=== PATIENT | male | born 1935 | race Caucasian/White ===

== ENCOUNTER 2019-01-17 09:11 | Observation (INO) | payer MEDICARE ==
[2019-01-15 12:50] LABS: BASOPHILS % (AUTO) 0.4 % (0.0-5.0); EOSINOPHILS % (AUTO) 2.3 % (0.0-8.0); LYMPHOCYTES % (AUTO) 23.5 % (21.0-51.0); MEAN CORPUSCULAR HEMOGLOBIN 32.3 pg (27.0-33.0); MEAN CORPUSCULAR HGB CONC 33.7 g/dL (32.0-36.0); MEAN CORPUSCULAR VOLUME 95.9 fL (79-99); NEUTROPHILS % (AUTO) 66.8 % (40.0-77.0); PLATELET COUNT (AUTO) 148 K/uL (130-400); RED BLOOD CELL COUNT(AUTO) 4.28 MIL/uL (4.50-6.20); RED CELL DISTRIBUTION WIDTH 13.7 % (11.0-15.5); WHITE BLOOD COUNT (AUTO) 6.8 K/uL (4.8-10.8)
[2019-01-15 13:00] LABS: POTASSIUM 4.3 mmol/L (3.5-5.1)
[2019-01-15 13:01] LABS: INR 1.01 (0.85-1.15); PARTIAL THROMBOPLASTIN TIME 30.3 SEC (26.3-35.5); PROTHROMBIN TIME 10.6 SEC (9.6-11.6)
[2019-01-15 13:09] VITALS: BP 138/71
[~2019-01-17] VITALS: Ht 180.3 cm; Wt 97.0 kg
[2019-01-17] VITALS (9 sets, daily range): BP systolic 109–178; BP diastolic 70–85
[~2019-01-17 09:11] MED LIST: ASPI-1114 PO; CALC-866 PO; DOCU250C14 PO; FURO20TA4 PO; MULT-1203 PO; PRAV20TA4 PO
[2019-01-17] MEDS ORDERED: SODIUM CHLORIDE 0.9% 1000ML 1,000 ML IV ONE (10:34)
[2019-01-17] MEDS ORDERED: CEFAZOLIN SODIUM 1 GM VIAL ONE (14:08)
[2019-01-17] MEDS ORDERED: BUPIVACAINE/PF 0.25% 30ML VIAL IJ ONE (14:08)
[2019-01-17] MEDS ORDERED: LIDOCAINE HCL 1% MDV 50ML VIAL ONE (14:09)
[2019-01-17] MEDS ORDERED: MIDAZOLAM HCL 1 MG/ML 2ML VIAL ONE ×5 (14:09→16:34)
[2019-01-17] MEDS ORDERED: MEPERIDINE-PF 25 MG/ML SYG ONE ×6 (14:09→16:34)
[2019-01-17] MEDS ORDERED: IODIXANOL 320 MG/ML 100 ML VIAL ONE (14:10)
[2019-01-17] MEDS ORDERED: THROMBIN-JMI 5000 UNIT/VIAL TP ONE (14:57)
[2019-01-17] MEDS ORDERED: OCTYL 2-CYANOACRYLATE 1 EACH TP ONE (17:04)
[2019-01-17] MEDS ORDERED: METOPROLOL TARTRATE 25 MG TAB PO SCH (17:45)
[2019-01-17] MEDS ORDERED: ACETAMINOPHEN 325 MG TAB PO PRN ×2 (17:45)
[2019-01-17] MEDS ORDERED: ACETAMINOPHEN-CODEINE 300/30MG TAB PO PRN ×2 (17:45)
[2019-01-17] MEDS ORDERED: ONDANSETRON HCL 4 MG/2 ML VIAL IV PRN (17:45)
[2019-01-17] MEDS: METOPROLOL TARTRATE 25 MG TAB PO SCH (20:53)
[2019-01-17] MEDS ORDERED: DOCUSATE SODIUM 100 MG CAP PO SCH (21:00)
[2019-01-17] MEDS ORDERED: SIMVASTATIN 20 MG TABLET PO SCH (21:00)
[2019-01-17] MEDS ORDERED: ASPIRIN 81MG TAB.CHEW PO SCH (21:00)
[2019-01-17] MEDS: CEFAZOLIN SODIUM 1 GM VIAL IVP SCH (23:10)
[2019-01-18 03:00] VITALS: BP 123/64
[2019-01-18] MEDS: CEFAZOLIN SODIUM 1 GM VIAL IVP SCH (06:42)
[2019-01-18 07:00] VITALS: BP 129/69
[2019-01-18] MEDS: METOPROLOL TARTRATE 25 MG TAB PO SCH (08:38)
[2019-01-18] MEDS ORDERED: FUROSEMIDE 20 MG TABLET PO SCH (09:00)
[2019-01-18] MEDS ORDERED: MULTIVITAMIN TABLET PO SCH (09:00)
[2019-01-18] MEDS ORDERED: CHOLECALCIFEROL 5000 UNIT PO SCH (09:00)
[2019-01-18 11:00] VITALS: BP 143/93
--- NOTE | 2019-01-18 13:40 | NUR ---
GIVEN DISMISSAL INSTRUCTIONS AND SCRIPT TO PT. VERBALIZED UNDERSTANDING. REMOVED TELE PACK. REMOVED SALINE LOCK FROM LEFT HAND, IV SITE WITHOUT REDNESS NOTED. TAKEN TO PRIVATE CAR ALONG WITH PERSONAL BELONGINGS VIA WHEELCHAIR BY JAIME PARISH.
== END 2019-01-18 14:00 | disposition home or self-care (01) ==
LOC: DAH 09:11 → 2DH 09:12 → DAH 09:12
PROVIDERS: ADMIT Internal Medicine; ATTEND Internal Medicine
DX: I44.2 Atrioventricular block, complete (principal); I11.0 Hypertensive heart disease with heart failure; I50.22 Chronic systolic (congestive) heart failure; E78.5 Hyperlipidemia, unspecified; I42.0 Dilated cardiomyopathy; I87.2 Venous insufficiency (chronic) (peripheral); Z84.89 Family history of other specified conditions; Z79.01 Long term (current) use of anticoagulants
CPT/HCPCS: 33225; 33229; 36415; 71046; 80048; 85025; 85610; 85730; 93005 ×2; 96374; 96376; A4606; C1769 ×5; C1894; C1900; C2621; G0378 ×29; J0690 ×2; J2175 ×6; J2250 ×5; J3490 ×3; J7030; Q9967; 99156; 99157

== ENCOUNTER → 2020-01-08 | Outpatient (CLI) | payer MEDICARE | END | disposition home or self-care (01) | LOC: OIH 12:51 | PROVIDERS: ATTEND Internal Medicine Cardiovascular Disease | DX: I49.5 Sick sinus syndrome (principal); Z95.0 Presence of cardiac pacemaker | CPT/HCPCS: 71046 ==